=== PATIENT | female | born 1945 | race Caucasian/White ===

== ENCOUNTER 2021-10-18 06:25 | Day surgery (SDC) | payer MEDICARE ==
[~2021-10-18] VITALS: Ht 165.1 cm; Wt 65.1 kg
[2021-10-18 07:38] VITALS: BP 128/82; PULSE 72; TEMP 98.5
[2021-10-18 08:40] VITALS: BP 106/63; PULSE 60
--- NOTE | 2021-10-18 08:40 | NUR ---
Pt to [facility] via cart from endo. Pt drowsy, but awake. Denies pain or nausea. Pt ambulates to recliner with stand by assistance. Warm blanket provided. Water given per pt request. Will continue to monitor. Call light within reach.
[2021-10-18 08:55] VITALS: BP 113/66; PULSE 55
--- NOTE | 2021-10-18 08:55 | NUR ---
Pt resting. Denies needs. Call light within reach.
[2021-10-18 09:10] VITALS: BP 118/70; PULSE 54
--- NOTE | 2021-10-18 09:10 | NUR ---
Pt continues to rest. Denies needs. Call light within reach.
--- NOTE | 2021-10-18 09:30 | NUR ---
Discharge instructions reviewed. Pt voices understanding. IV site discontinued with all parts intact. Pt up to dress. Call light within reach.
--- NOTE | 2021-10-18 10:10 | NUR ---
Pt escorted to private car via wheel chair. Pt accompanied home by a friend.
== END 2021-10-18 10:10 | disposition home or self-care (01) ==
LOC: SDCO 06:25
DX: Z12.11 Encounter for screening for malignant neoplasm of colon (principal); D12.0 Benign neoplasm of cecum; K57.30 Diverticulosis of large intestine without perforation or abscess without bleeding; Z87.891 Personal history of nicotine dependence; Z85.828 Personal history of other malignant neoplasm of skin
CPT/HCPCS: 30845; 31709; 32035; 32149; 32153; 32161; 32575